=== PATIENT | female | born 1965 | race Caucasian/White ===

== ENCOUNTER 2020-11-22 09:01 | Emergency (ER) | payer MEDICARE, MEDICAID, SELFPAY ==
[2020-11-22 09:02] VITALS: BP 129/80; PULSE 89; RESP 16; TEMP 36.4; O2SAT 99; BMI 32.5
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
[2020-11-22 09:52] VITALS: RESP 16
== END 2020-11-22 09:52 | disposition home or self-care (01) ==
LOC: ED 09:49
PROVIDERS: Emergency Provider Emergency Medicine
DX: H60.91 Unspecified otitis externa, right ear (principal); F17.210 Nicotine dependence, cigarettes, uncomplicated
CPT/HCPCS: 99282

== ENCOUNTER → 2020-11-30 | Outpatient (CLI) | payer MEDICARE, MEDICAID, SELFPAY ==
[2020-11-22 09:02] VITALS: BMI 32.5
== END | disposition home or self-care (01) ==
LOC: LABSPEC 15:14
PROVIDERS: Visit Provider Otolaryngology
DX: H66.40 Suppurative otitis media, unspecified, unspecified ear (principal)
CPT/HCPCS: 87070; 87075; 87186; 87205

== ENCOUNTER → 2020-12-28 | Outpatient (CLI) | payer MEDICARE, MEDICAID, SELFPAY | END | disposition home or self-care (01) | PROVIDERS: Referring Provider Otolaryngology; Visit Provider Otolaryngology | DX: S01.309A Unspecified open wound of unspecified ear, initial encounter (principal) | CPT/HCPCS: 87070; 87075; 87077; 87205 ==

== ENCOUNTER 2021-03-12 06:04 | Day surgery (SDC) | payer MEDICARE, MEDICAID, SELFPAY ==
--- NOTE | 2021-03-12 | ABS_PTH ---
PATIENT: CHAVA POWELL LOC: [facility] [place] U#:[id number] AGE/SX: 55/F ROOM: RE03/12/[address]: Dr. Alfonso Huang MD : 1965 BED: DIS: 03/12/2021 SPEC #: [id number] RECD: 03/12/21 12:59 STATUS: SANGEETA LOPEZ #: [id number] JACKIE: 03/12/21 00:[address]: Alfonso Huang DEPT: SURGICAL PATHOLOGY RECD BY: Angel Ochoa ENTERED: 03/12/21 12:59 SP TYPE: Abscess OTHR DR: Dr. Elia Mancuso MD Tissues: Ear, NOS Procedures: Surgery Specimen Level III HEADER OPERATION: Debridement ear, external abscess PRE-OP DIAGNOSIS: Otorrhea right ear, abscess of right external ear TISSUE SUBMITTED: Skin from right ear abscess MICROSCOPIC DIAGNOSIS Skin from right ear abscess, biopsy: Minimal chronic dermal inflammation. No evidence of malignancy. AM:kelli 03/13/2021 MICROSCOPIC DESCRIPTION Slides are reviewed. GROSS DESCRIPTION Received in fixative is one container labeled with the patient's name and designated skin from right ear abscess. The specimen consists of a single irregular fragment of sinclair tissue measuring 0.3 x 0.2 x 0.1 cm. The specimen is totally submitted in one cassette. / AM:kelli 03/12/21 TC:3 CPT: 39940
[2021-03-12 06:29] VITALS: BP 136/74; PULSE 74; RESP 16; TEMP 36.2; O2SAT 98; BMI 33.0
[2021-03-12] MEDS: Lactated Ringers 1,000 ML 100 ML IV (06:34)
--- NOTE | 2021-03-12 07:31 | PCM.DC.SUM ---
Providers Primary Care Physician: Dr. Elia Manucso MD Reason For Visit: RT DEBRIDEMENT EAR Medications at Discharge Home Medications omeprazole 40 mg PO DAILY 11/22/20 ascorbic acid (vitamin C) [Vitamin C] 500 mg PO DAILY 03/05/21 cholecalciferol (vitamin D3) [Vitamin D3] 25 mcg PO DAILY 03/05/21 ferrous sulfate 325 mg PO DAILY 03/05/21 lecithin 400 mg PO DAILY 03/05/21 loratadine [Claritin] 10 mg PO DAILY 03/05/21 omega 5-lvf-mjw-fish oil [Fish Oil] 1 cap PO DAILY 03/05/21 turmeric 400 mg PO DAILY 03/05/21 vitamin B complex 1 tab PO DAILY 03/05/21 Weight / BMI Weight Weight: 90.2 kg Body Mass Index (BMI) 33.0 ABG / Lab / Microbiology Data Microbiology: Microbiology 03/09/21 08:45 Interface Orders SARS-CoV-2 Antigen (Rapid) - Final D/C Instructions Discharge Diet: No restrictions Discharge Activity: Return to Normal Activity Additional Activity Instructions: Apply antibiotic ointment 3x/day to the ear. Keep right ear dry Meaningful Use Info Meaningful Use Diagnoses (Choose all that apply): None applicable Discharge Plan Admission Attending Provider: Alfonso Huang Primary Care Provider: Elia Mancuso Discharge Orders/Prescriptions Prescriptions: No Action omeprazole 40 mg capsule,delayed release(DR/EC) 40 mg PO DAILY RF: 0 ascorbic acid (vitamin C) [Vitamin C] 500 mg Tablet 500 mg PO DAILY RF: 0 vitamin B complex Tablet 1 tab PO DAILY RF: 0 loratadine [Claritin] 10 mg Tablet 10 mg PO DAILY RF: 0 ferrous sulfate 325 mg (65 mg iron) Capsule, Extended Release 325 mg PO DAILY RF: 0 cholecalciferol (vitamin D3) [Vitamin D3] 25 mcg (1,000 unit) Capsule 25 mcg PO DAILY RF: 0 lecithin 400 mg Capsule 400 mg PO DAILY RF: 0 omega 1-iqn-kti-fish oil [Fish Oil] 60-90-500 mg Capsule 1 cap PO DAILY RF: 0 turmeric 400 mg Capsule 400 mg PO DAILY RF: 0 Disposition Discharge Orders: Discharge Patient (Routine); Ordered 03/12/21 Ordered By: Dr. Alfonso Huang
[2021-03-12] MEDS: Lidocaine 1% /Epi 1:100 (20ml) 20 ML Vial (07:45)
[2021-03-12] MEDS: Mupirocin Ointment 22gm Tube 1 APPLIC (08:00)
--- NOTE | 2021-03-12 08:14 | PCM.OPRPT ---
Report of Operation Date of Procedure: 03/12/21 Pre-Operative Diagnosis: right ear abscess Post-Operative Diagnosis: same and foreign body ear Surgery/Procedure Performed:: debridement right ear with removal of foreign body right ear Surgeon: Alfonso Huang Type of Anesthesia: Local MAC Anesthesiologist: Jordan Barnes Estimated Blood Loss (mL): minimal Description of Procedure: The patient was taken to the operating room on 03/12/2021. She was placed in the supine position on the operating room table. The right ear was prepped and draped sterilely. The operating microscope was used throughout the entire case. 1% lidocaine with epinephrine was injected into the skin surrounding the intended incision. I explored a blind pouch at the superior antihelix. I then made an incision directly over this with a 15 blade. The skin was removed from this area with a 15 blade. At this point I encountered a clear triangular piece of glass. This was removed. I then made an incision along the antihelical rim with a 15 blade. The skin was explored in this area. I did not find any further foreign body. I then irrigated the wound with saline. I reapproximated the skin over the antihelix with 4-0 Vicryl. The area of the blind fistula was left open and antibiotic ointment was applied to that area. The patient was then removed from the operating room and brought to the recovery room in stable condition. Blood loss minimal, replacement none. Sponge needle and instrument count correct at the end the procedure.
[2021-03-12 08:25] VITALS: BP 114/73; BP 136/74; PULSE 69; RESP 18; TEMP 36.1; O2SAT 98
[2021-03-12 08:30] VITALS: BP 114/67; BP 136/74; PULSE 68; RESP 16; O2SAT 97
[2021-03-12 08:35] VITALS: BP 120/70; BP 136/74; PULSE 64; RESP 16; O2SAT 95
[2021-03-12 08:40] VITALS: BP 117/67; BP 136/74; PULSE 68; RESP 16; TEMP 36.1; O2SAT 97
[2021-03-12 09:10] VITALS: BP 136/74
== END 2021-03-12 09:11 | disposition home or self-care (01) ==
LOC: SDC 06:05 → AC 06:05
PROVIDERS: Referring Provider Otolaryngology; Visit Provider Otolaryngology
PROC: (CPT 69399; principal; 2021-03-12 07:15)
DX: H60.01 Abscess of right external ear (principal); K21.9 Gastro-esophageal reflux disease without esophagitis; M19.90 Unspecified osteoarthritis, unspecified site; G47.30 Sleep apnea, unspecified; Z78.0 Asymptomatic menopausal state
CPT/HCPCS: 00120; 69399; 87426; 88304; C9803; J7120; J2405

== ENCOUNTER → 2021-04-12 | Outpatient (CLI) | payer MEDICARE, MEDICAID, SELFPAY | END | disposition home or self-care (01) | LOC: LABSPEC 10:16 | PROVIDERS: Referring Provider Otolaryngology; Visit Provider Otolaryngology | DX: H66.40 Suppurative otitis media, unspecified, unspecified ear (principal) | CPT/HCPCS: 87070; 87075; 87077; 87205 ==

== ENCOUNTER → 2021-12-12 | Outpatient (CLI) | payer MEDICARE, MEDICAID, SELFPAY ==
[2021-12-19 01:07] LABS: Clam <0.10 kU/L (Class 0); Codfish <0.10 kU/L (Class 0); Corn <0.10 kU/L (Class 0); Egg, White <0.10 kU/L (Class 0); Milk (Cow) <0.10 kU/L (Class 0); Peanut <0.10 kU/L (Class 0); SCALLOP <0.10 kU/L (Class 0); Shrimp <0.10 kU/L (Class 0); Soybean <0.10 kU/L (Class 0); Walnut, (Food) <0.10 kU/L (Class 0); Wheat <0.10 kU/L (Class 0)
[2021-12-20 16:43] LABS: SESAME SEED <0.10 kU/L (Class 0)
== END | disposition home or self-care (01) ==
PROVIDERS: Referring Provider Otolaryngology; Visit Provider Otolaryngology
DX: S01.301A Unspecified open wound of right ear, initial encounter (principal); T78.40XA Allergy, unspecified, initial encounter
CPT/HCPCS: 36415; 86003; 87070; 87077; 87186; 87205

== ENCOUNTER → 2022-05-02 | Outpatient (CLI) | payer MEDICARE, MEDICAID, SELFPAY | END | disposition home or self-care (01) | LOC: LABSPEC 15:15 | PROVIDERS: Visit Provider Otolaryngology | DX: S09.91XA Unspecified injury of ear, initial encounter (principal) | CPT/HCPCS: 87070; 87075; 87077; 87186; 87205 ==

== ENCOUNTER → 2022-08-15 | Outpatient (CLI) | payer MEDICARE, MEDICAID, SELFPAY ==
[2022-08-23 13:30] LABS: HPV APTIMA, High Risk Negative (Negative)
== END | disposition home or self-care (01) ==
LOC: LABSPEC 16:03
PROVIDERS: Visit Provider Obstetrics & Gynecology
DX: Z12.4 Encounter for screening for malignant neoplasm of cervix (principal)
CPT/HCPCS: 87624; 88175; G0145

== ENCOUNTER → 2022-08-29 | Outpatient (CLI) | payer MEDICARE, MEDICAID, SELFPAY ==
--- NOTE | 2022-08-29 12:07 | BI_ITS ---
MAMMOGRAPHY - BILATERAL SCREENING REASON FOR EXAM: Female, 56 years old. Routine annual screening examination. PERTINENT HISTORY: Non-contributory. TECHNIQUE: Digital bilateral breast rebecca (3D mammographic acquisition) in the CC and MLO projections. 2-D mediolateral oblique (MLO) and craniocaudad (CC) views of both breasts were obtained. CAD: Full Field Digital Mammography with Computer Added Detection was performed. COMPARISON: Comparison is made with prior examination of March 01, 2010 and outside examination dated April 02, 2019. FINDINGS: Breast Composition: The breasts are almost entirely fatty. There are no dominant masses or suspicious calcifications. No other significant abnormalities are identified. There has been no significant change since the prior study. BI/SCRN MAMM (CAD)W/REBECCA BILAT IMPRESSION: Stable bilateral screening mammogram. Yearly follow-up mammogram recommended. (A) ASSESSMENT CATEGORY: BIRADS Category 1: Negative. A letter regarding these results will be sent to the patient by the facility within 30 days. Approximately 10% of breast cancers are not detected by mammography. A normal mammogram should not delay biopsy of a clinically suspicious abnormality. [id number] Electronically Signed: Kelvin Arce MD at 12:50 EST ,
== END | disposition home or self-care (01) ==
LOC: OPBI 12:05
PROVIDERS: Visit Provider Obstetrics & Gynecology
DX: Z12.31 Encounter for screening mammogram for malignant neoplasm of breast (principal)
CPT/HCPCS: 77063; 77067

== ENCOUNTER → 2022-11-15 | Outpatient (CLI) | payer MEDICARE, MEDICAID, SELFPAY ==
[2022-11-15 14:30] LABS: Absolute Lymphocyte Count 3.19 X10^3/uL (0.83-4.51); Absolute Neutrophil Count 4.1 X10^3/uL (2.0-7.7); Basophil# 0.03 X10^3/uL; Basophil% 0.4 % (0-1); Eosinophils% 1.3 % (0-5); Hematocrit 41.1 % (37-47); Hemoglobin 13.3 g/dL (12.0-15.0); Lymphocyte # 3.19 X10^3/ul (0.83-4.51); Lymphocyte % 39.9 % (19-41); Mean Corp Hgb Conc 32.4 g/dL (32-36); Mean Corpuscular Hgb 32.2 pg (27.0-32.0); Mean Corpuscular Volume 99.5 fL (81-99); Monocyte% 6.3 % (0-10); NRBC Flagged by Analyzer 0 % (0-5); Neutrophil # 4.14 X10^3/uL (2.7-7.7); Neutrophil % 51.7 % (47-70); Platelet Count 219 K/mm3 (150-450); RBC Distribution Width CV 13.3 % (11.6-14.6); RBC Distribution Width SD 48.7 fl (35.1-43.9); Red Blood Count 4.13 M/mm3 (4.2-5.4)
[2022-11-15 14:33] LABS: Erythrocyte Sedimentation Rate 18 mm/hr (0-30)
[2022-11-15 15:01] LABS: ALB/GLOB Ratio 1.1 RATIO (0.9-2.4); AST(SGOT) 25 U/L (15-37); Alanine Aminotransfer ALT/SGPT 46 U/L (13-56); Albumin, Serum 3.8 g/dL (3.2-5.0); Alkaline Phosphatase 70 U/L (45-117); Anion Gap 9 (5-15); BUN 11 mg/dL (7-18); BUN/Creat Ratio 14.9 RATIO (10-20); CRP 5.18 mg/L (0.0-3.0); Calcium,Total 8.9 mg/dL (8.5-10.1); Chloride 108 mmol/L (98-107); Creatinine, Serum 0.74 mg/dL (0.55-1.02); EST Glomerular Filtration Rate 86 mL/min (>60); Est Glom Filt Rate - Afr Amer 105 mL/min (>60); Ferritin 89 ng/mL (8-252); Globulin 3.5 g/dL (2.2-4.2); Glucose 119 mg/dL (74-106); LDH 186 U/L (84-246); Potassium 3.6 mmol/L (3.5-5.1); Protein, Total 7.3 g/dL (6.4-8.2); Sodium Level 142 mmol/L (136-145)
[2022-11-19 14:09] LABS: Anti-Centromere B Ab <0.2 AI (0.0-0.9); Anti-Chromatin <0.2 AI (0.0-0.9); Anti-Jo <0.2 AI (0.0-0.9); Anti-Scleroderma-70 AB <0.2 AI (0.0-0.9); Anti-dsDNA Ab 1 IU/mL (0-9); RNP Ab 0.2 AI (0.0-0.9); SJOGREN'S Anti-SS-A test < 0.2 AI (0.0-0.9); SJOGREN'S Anti-SS-B test 0.4 AI (0.0-0.9); Smith Ab <0.2 AI (0.0-0.9)
[2022-11-19 15:08] LABS: Endomysial Antibody IgA Negative (Negative); Immunoglobulin A 168 mg/dL (87-352); t-Transglutaminase IgA <2 U/mL (0-3)
[2022-11-21 14:09] LABS: Albumin 4.1 g/dL (2.9-4.4); Alpha-1-Globulins 0.2 g/dL (0.0-0.4); Alpha-2-Globulins 0.6 g/dL (0.4-1.0); Angiotensin Convert Enzyme 30 U/L (14-82); Cytoplasmic Ab (C-ANCA) <1:20 titer (Neg:<1:20); Gamma Globulin 1.1 g/dL (0.4-1.8); Immunoglobulin A 173 mg/dL (87-352); Immunoglobulin E 24 IU/mL (6-495); Immunoglobulin G 806 mg/dL (586-1602); Immunoglobulin M 411 mg/dL (26-217); PROEL- TOTAL PROTEIN 6.9 g/dL (6.0-8.5); Perinuclear Ab (P-ANCA) <1:20 titer (Neg:<1:20)
== END | disposition home or self-care (01) ==
PROVIDERS: Referring Provider Internal Medicine Gastroenterology; Visit Provider Internal Medicine Gastroenterology
DX: R19.7 Diarrhea, unspecified (principal); H60.90 Unspecified otitis externa, unspecified ear; D64.9 Anemia, unspecified
CPT/HCPCS: 36415; 80053; 82164; 82728; 82784; 82785; 83516; 83615; 84165; 85025; 85652; 86140; 86225; 86235; 86255; 86256; 86334

== ENCOUNTER → 2023-03-11 | Outpatient (CLI) | payer MEDICARE, MEDICAID, SELFPAY | END | disposition home or self-care (01) | LOC: LABSPEC 15:15 | PROVIDERS: PCP Physician Assistant; Referring Provider Internal Medicine Gastroenterology; Visit Provider Internal Medicine Gastroenterology | DX: R19.7 Diarrhea, unspecified (principal); K58.9 Irritable bowel syndrome, unspecified | CPT/HCPCS: 82653; 82705; 83630; 83993; 87177; 87209; 87329; 87493; 87506 ==

== ENCOUNTER 2023-04-01 11:02 | Day surgery (SDC) | payer MEDICARE, MEDICAID, SELFPAY ==
[2023-04-01] VITALS (7 sets, daily range): BP systolic 124–134; BP diastolic 66–82; PULSE 69–83; RESP 16–18; TEMP 36.2–36.6; O2SAT 96–99; BMI 32.4
--- NOTE | 2023-04-01 | COLBX_PTH ---
PATIENT: CHAVA POWELL LOC: [facility] U#:[id number] AGE/SX: 57/F ROOM: RE04/01/[address]: Dr. Augie Kelly DO : 1965 BED: DIS: 04/01/2023 SPEC #: [id number] RECD: 04/01/23 15:14 STATUS: SANGEETA JESSICA #: [id number] JACKIE: 04/01/23 00:[address]: Augie Kelly DEPT: SURGICAL PATHOLOGY RECD BY: Arelis Blue ENTERED: 04/02/23 10:02 SP TYPE: COLON BX OTHR DR: Iam Darling PA-C Tissues: A - Duodenum, NOS B - Gastric mucous membrane C - Esophagus, NOS D - Ileum, NOS E - COLON BIOPSY Procedures: Special Stain Group II Surgery Specimen Level IV Alcian Blue/PAS (control) HEADER OPERATION: Colonoscopy, EGD ([facility] [place]), biopsy PRE-OP DIAGNOSIS: Screening, gastric reflux, diarrhea TISSUE SUBMITTED: A - Duodenum biopsy, B - Gastric body biopsy, C - Distal esophagus biopsy, D - Terminal ileum biopsy, E - Random colonic biopsy MICROSCOPIC DIAGNOSIS A. Duodenum, biopsy: No pathologic change. B. Gastric body, biopsy: Mild chronic gastritis. See comment. C. Distal esophagus, biopsy: Gastroesophageal junctional mucosa with mild chronic inflammation. No evidence of goblet cell metaplasia. See comment. D. Terminal ileum, biopsy: No pathologic change. E. Colon, random biopsy: No pathologic change. AM:kelli 04/03/2023 COMMENT B. The results of immunohistochemistry for Helicobacter pylori will be reported separately ([id number]). C. Alcian blue/PAS stain with matched control supports the above diagnosis. MICROSCOPIC DESCRIPTION Slides are reviewed. GROSS DESCRIPTION A - Received in fixative is one container labeled with the patient's name and designated duodenum biopsy. The specimen consists of two irregular fragments of light sinclair soft tissue that in aggregate measure 1.0 x 0.5 x 0.1 cm. The specimen is totally submitted in one cassette. B - Received in fixative is one container labeled with the patient's name and designated gastric body biopsy. The specimen consists of two irregular fragments of light sinclair soft tissue that in aggregate measure 0.7 x 0.6 x 0.1 cm. The specimen is totally submitted in one cassette. C - Received in fixative is one container labeled with the patient's name and designated distal esophagus. The specimen consists of two irregular fragments of light sinclair soft tissue that in aggregate measure 0.6 x 0.5 x 0.1 cm. The specimen is totally submitted in one cassette. D - Received in fixative is one container labeled with the patient's name and designated terminal ileum biopsy. The specimen consists of one irregular fragment of light sinclair soft tissue that measures 0.5 x 0.3 x 0.1 cm. The specimen is totally submitted in one cassette. E - Received in fixative is one container labeled with the patient's name and designated random colon biopsy. The specimen consists of multiple irregular fragments of light sinclair soft tissue that in aggregate measure 2.0 x 0.5 x 0.1 cm. The specimen is totally submitted in one cassette. / AM:kelli 04/02/2023 TC:3 CPT: 06386 x5, 39853
[2023-04-01] MEDS: Lactated Ringers 1,000 ML 15 ML IV (11:31)
--- NOTE | 2023-04-01 12:15 | IMM_PTH ---
PATIENT: CHAVA POWELL LOC: [facility] U#:[id number] AGE/SX: 57/F ROOM: RE04/01/[address]: Dr. Augie Kelly DO : 1965 BED: DIS: 04/01/2023 SPEC #: [id number] RECD: 04/02/23 13:50 STATUS: SANGEETA REKam #: [id number] JACKIE: 04/01/23 12:[address]: Augie Kelly DEPT: IMMUNOHISTOCHEMISTRY RECD BY: Geri Marte ENTERED: 04/02/23 13:50 SP TYPE: IMMUNO OTHR DR: Iam Darling PA-C Tissues: B - Stomach, NOS Procedures: H Pylori (initial) PHYSICIAN & INSTITUTION [place] [id number] SPECIMEN INFORMATION: Tissue Source: B - Gastric body Clinical Info: Screening, gastric reflux, diarrhea Specimen Number: [id number] CPT code: 94907 METHODOLOGY: Deparaffinized sections of prefer/formalin-fixed tissue or PAP/DQ stained slides are incubated with monoclonal/polyclonal antibodies/oligonucleotide probes. Localization is made via biotin free immunoperoxidase method. Appropriate controls are performed and reacted as expected. Results on target cell population are indicated in the following table: RESULTS: ANTIBODY / CLONE RESULT Block B H Pylori (polyclonal) negative These tests were developed and their performance characteristics determined by [facility]. They may not have been cleared or approved by the U.S. Food and Drug Administration. The FDA has determined that such clearance or approval is not necessary. The above immunohistochemical/dualISH markers are ordered and reviewed by the Pathologist. INTERPRETATION: B. Gastric body, biopsy: Negative for Helicobacter pylori organisms. AM:kelli 04/03/2023
--- NOTE | 2023-04-01 12:22 | HP.PCM_ITS ---
History and Physical Date of Admission: 04/01/23 57 F who presents to the office today for [facility] established for management of malignant lymphoma, pancytopenia, splenomegaly, Waldenstrom?s macroglobulinemia, iron deficiency anemia. ? Barium swallow 08.21.21 mild-moderate oropharyngeal phase dysphagia. Enrolled in . Somewhat improved from 07.10.21 study. ? PET/CT 05.29.22 increased splenic uptake viable for splenic neoplastic transformation; increased uptake of left lower lateral hemithorax not viable for neoplasm. ? CT abd/pel 09.16.22 normal liver; moderate splenomegaly; renal cysts; prior small intestine surgery; diverticulosis; atherosclerotic disease. *[facility] established 11.15.22 new onset weakness in the last three weeks, he has extreme difficulty standing. Reports upper abdominal discomfort with PO intake. BM typically constipation with straining with beginning stool hard and ending stool watery. Notes hemorrhoids with bleeding. PO intake two meals per day r/t poor tasting foods. Reports oncologist would like to start on low-aggressive chemotherapy. Increased abdominal distension when BLE started. Reports bowel resection r/t bowel obstruction r/t lymphoma performed at [facility]. Reports new onset swallowing difficulty; history of PEG placement in 2021 to address dysphagia.? ROS Const Constitutional: No anorexia, fatigue, fever(s), weight change or sleep problems Eyes Eyes: No change in vision ENT ENT: No abnormal hearing, difficulty swallowing, mouth lesions, tongue swelling or throat swelling Resp Respiratory: No cough or shortness of breath Cardio Cardiology: No chest pain at rest, chest pain with exertion, shortness of breath or dyspnea on exertion Gastro GI: No difficulty swallowing Genitourinary-Female: No difficulty urinating or burning urination Musc Musculoskeletal: No joint pain, joint swelling, muscle weakness or decreased muscle mass Skin Skin: No hair loss in leg, yellowing of the eye, itchy eyes, rash, skin ulcer or skin swelling Neuro Neurology: No abnormal hearing, abnormal movements, confusion, unsteady gait/balance or memory loss Psych Psychiatric: No anxiety, No confusion and No memory loss Endo Endocrine: No fatigue or weight change Aller/Imm Allergy/Immunologic: No itchy eyes, throat swelling or tongue swelling Gus/Lymp Hematologic/Lymphatic: No easy bleeding, easy bruising or enlarged lymph nodes Exam Const General: cooperative and comfortable Nutritional Appearance: average body habitus and well nourished [facility] Head: normal to inspection Ears: hearing grossly normal bilaterally Nose: external nose normal Face and sinus: normal facial exam Mouth: oral mucosae normal Throat: posterior oropharynx normal Eyes General: appearance normal, both eyes and all related structures Neck Neck: normal visual inspection Chest Chest palpation & inspection: normal inspection of the chest and normal palpation of entire chest wall Resp Effort & Inspection: normal respiratory effort Auscultation: Bilateral: Clear to Auscultation Cardio Palpation: normal PMI Rate: regular rate Rhythm: regular rhythm GI Inspection: normal to inspection Auscultation: normal bowel sounds Percussion: normal to percussion Palpation: no hepatosplenomegaly Skin General: no rashes or lesions noted Neuro General: patient alert Extrem General: normal to inspection Psych Affect: normal affect Quality Reporting Tobacco Screening ([facility] 138) Smoking Status: Current every day smoker Assessment and Plan Assessment and Plan (1) Encounter for screening for malignant neoplasm of colon: Status: Acute Plan: She will undergo screening colonoscopy. She was explained alternatives, risk, benefits include not withstanding bleeding, infection, sepsis, perforation, need for emergent surgery . She will have an ASA of 2. (2) Gastric reflux: Status: Chronic Plan: We will also evaluate upper GI tract because a history of gastroesophageal reflux disease. He is is not on PPI therapy. We will put her on Protonix 40 mg daily. (3) Diarrhea: Status: Acute Plan: Due to her history of intermittent diarrhea we will check her for celiac disease, ESR, CRP, protein electrophoresis, stool studies and will also evaluate upper lower GI tract when she undergoes her endoscopy and colonoscopy. Orders: Orders CRP Today R19.7 - Diarrhea, unspecified Ferritin Today D64.9 - Anemia, unspecified, R19.7 - Diarrhea, unspecified LDH Today R19.7 - Diarrhea, unspecified CBC W/Diff, Automated Today H60.90 - Unspecified otitis externa, unspecified ear, R19.7 - Diarrhea, unspecified Erythrocyte Sed Rate Today R19.7 - Diarrhea, unspecified Angiotensin Convert Enzyme Today R19.7 - Diarrhea, unspecified ANCA Today R19.7 - Diarrhea, unspecified Celiac Disease Profile Today R19.7 - Diarrhea, unspecified Immunoglobulin E Today R19.7 - Diarrhea, unspecified Comprehensive Metabolic Profil Today R19.7 - Diarrhea, unspecified DARIN Comprehensive Panel Today R19.7 - Diarrhea, unspecified Calprotectin, Stool Today R19.7 - Diarrhea, unspecified Fecal Fat, Qualitative Today R19.7 - Diarrhea, unspecified OVA+PARA w/Giardia EIA [id number] Today R19.7 - Diarrhea, unspecified CDIFF (PCR) Today R19.7 - Diarrhea, unspecified ENTERIC PATHOGEN PANEL STOOL Today K58.9 - Irritable bowel syndrome without diarrhea, R19.7 - Diarrhea, unspecified Stool Lactoferrin/WBC Today K58.9 - Irritable bowel syndrome without diarrhea, R19.7 - Diarrhea, unspecified ROCKY + Protein Elect, Serum Today R19.7 - Diarrhea, unspecified Pancreatic Elastase, Fecal Today R19.7 - Diarrhea, unspecified Miscellaneous Lab Procedure Today R19.7 - Diarrhea, unspecified I have examined the patient and the H&P has been reviewed. There are no clinical changes since date of exam.
--- NOTE | 2023-04-01 13:04 | OP.EGD_ITS ---
Patient Name: Jennifer Rogers Procedure Date: 04/01/2023 12:29 PM Date of : 1965 Age: 57 Procedure: Upper GI endoscopy Indications: Functional Dyspepsia, Heartburn Providers: Augie Kelly DO Referring MD: Iam Darling Do Medicines: Monitored Anesthesia Care Patient Profile: This is a 57 year old female. Refer to note in patient chart for documentation of history and physical. Patient has symptoms of chronic abdominal cramping, chronic abdominal distention, chronic dysphagia and chronic dyspepsia. Complications: No immediate complications. Procedure: Pre-Anesthesia Assessment: - Prior to the procedure, a History and Physical was performed, and patient medications and allergies were reviewed. The risks and benefits of the procedure and the sedation options and risks were discussed with the patient. All questions were answered and informed consent was obtained. Patient identification and proposed procedure were verified by the physician in the pre-procedure area. Mental Status Examination: alert and oriented. Respiratory Examination: clear to auscultation. CV Examination: normal. Prophylactic Antibiotics: The patient does not require prophylactic antibiotics. Prior Anticoagulants: The patient has taken no anticoagulant or antiplatelet agents. ASA Grade Assessment: II - A patient with mild systemic disease. After reviewing the risks and benefits, the patient was deemed in satisfactory condition to undergo the procedure. The anesthesia plan was to use monitored anesthesia care (MAC). Immediately prior to administration of medications, the patient was re-assessed for adequacy to receive sedatives. The heart rate, respiratory rate, oxygen saturations, blood pressure, adequacy of pulmonary ventilation, and response to care were monitored throughout the procedure. The physical status of the patient was re-assessed after the procedure. After obtaining informed consent, the endoscope was passed under direct vision. Throughout the procedure, the patient's blood pressure, pulse, and oxygen saturations were monitored continuously. The colonoscope was introduced through the mouth, and advanced to the second part of duodenum. The upper GI endoscopy was accomplished without difficulty. The patient tolerated the procedure well. Scope In: 12:30:55 PM Scope Out: 12:40:44 PM Total Procedure Duration Time 0 hours 9 minutes 49 seconds Findings: The upper third of the esophagus and middle third of the esophagus were mildly tortuous. A moderate Schatzki ring was found in the lower third of the esophagus. A guidewire was placed and the scope was withdrawn. Dilation was performed with a Savary dilator with no resistance at 45 Fr. The dilation site was examined and showed moderate mucosal disruption. Estimated blood loss was minimal. There were esophageal mucosal changes suspicious for Wild's esophagus present in the lower third of the esophagus. The maximum longitudinal extent of these mucosal changes was 3 cm in length. Mucosa was biopsied with a cold forceps for histology at intervals of 1 cm in the lower third of the esophagus. One specimen bottle was sent to pathology. A small hiatal hernia was present. Patchy moderately erythematous mucosa without bleeding was found in the gastric body. Biopsies were taken with a cold forceps for histology. Verification of patient identification for the specimen was done. Biopsies were taken with a cold forceps for Helicobacter pylori testing. Verification of patient identification for the specimen was done. Estimated blood loss was minimal. There was evidence of a patent previous surgical anastomosis in the first portion of the duodenum. This was characterized by healthy appearing mucosa. Biopsies were taken with a cold forceps for histology. Verification of patient identification for the specimen was done. Estimated blood loss was minimal. Impression: - Tortuous esophagus. - Moderate Schatzki ring. Dilated. 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 Biopsied. - Small hiatal hernia. - Erythematous mucosa in the gastric body. Biopsied. - Patent previous surgical anastomosis, characterized by healthy appearing mucosa was found in the duodenum. Biopsied. Recommendation: - Discharge patient to home. - Resume previous diet. - Continue present medications. - Await pathology results. Procedure Code(s): --- Professional --- 71027, Esophagogastroduodenoscopy, flexible, transoral; with insertion of guide wire followed by passage of dilator(s) through esophagus over guide wire 19319, 59,51, Esophagogastroduodenoscopy, flexible, transoral; with biopsy, single or multiple CPT copyright 2021 [employer]. All rights reserved. The codes documented in this report are preliminary and upon business process manager review may be revised to meet current compliance requirements. Augie Kelly DO 04/01/2023 1:04:01 PM This report has been signed electronically. Number of Addenda: 0 Note Initiated On: 04/01/2023 12:29 PM
--- NOTE | 2023-04-01 13:04 | OP.CCLET_ITS ---
04/01/2023 Iam Darling Do Re : Upper GI endoscopy procedure for Jennifer Rogers Dear Phong This procedure was performed on Saturday, April 01, 2023. My impressions and recommendations are as follows: Impressions : - Tortuous esophagus. - Moderate Schatzki ring. Dilated. 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 Biopsied. - Small hiatal hernia. - Erythematous mucosa in the gastric body. Biopsied. - Patent previous surgical anastomosis, characterized by healthy appearing mucosa was found in the duodenum. Biopsied. Recommendations : - Discharge patient to home. - Resume previous diet. - Continue present medications. - Await pathology results. My findings are described in the full procedure note, which is enclosed. If I can be of further assistance, please feel free to contact me at . Sincerely, Augie Kelly, 04/01/2023 1:04:01 PM This report has been signed electronically.
--- NOTE | 2023-04-01 13:07 | OP.CCLET_ITS ---
04/01/2023 Iam Darling Do Re : Colonoscopy procedure for Jennifer Rogers Dear Phong This procedure was performed on Saturday, April 01, 2023. My impressions and recommendations are as follows: Impressions : - Diverticulosis in the sigmoid colon. - Congested mucosa in the transverse colon and in the ascending colon. Biopsied. - Congested mucosa in the terminal ileum. Biopsied. Recommendations : - Discharge patient to home. - Resume previous diet. - Continue present medications. - Await pathology results. - Repeat colonoscopy in 10 years for screening purposes. My findings are described in the full procedure note, which is enclosed. If I can be of further assistance, please feel free to contact me at . Sincerely, Augie Kelly, 04/01/2023 1:06:30 PM This report has been signed electronically.
--- NOTE | 2023-04-01 13:07 | OP.COLON_ITS ---
Patient Name: Jennifer Rogers Procedure Date: 04/01/2023 12:41 PM Date of : 1965 Age: 57 Procedure: Colonoscopy Indications: Screening for colorectal malignant neoplasm Providers: Augie Kelly DO Referring MD: Iam Darling Do Medicines: Monitored Anesthesia Care Patient Profile: This is a 57 year old female. Refer to note in patient chart for documentation of history and physical. Patient has symptoms of chronic abdominal cramping, chronic abdominal distention, chronic dysphagia and chronic dyspepsia. Last Colonoscopy: date unknown. Unable to locate last colonoscopy report. Complications: No immediate complications. Procedure: Pre-Anesthesia Assessment: - Prior to the procedure, a History and Physical was performed, and patient medications and allergies were reviewed. The risks and benefits of the procedure and the sedation options and risks were discussed with the patient. All questions were answered and informed consent was obtained. Patient identification and proposed procedure were verified by the physician in the pre-procedure area. Mental Status Examination: alert and oriented. Respiratory Examination: clear to auscultation. CV Examination: normal. Prophylactic Antibiotics: The patient does not require prophylactic antibiotics. Prior Anticoagulants: The patient has taken no anticoagulant or antiplatelet agents. ASA Grade Assessment: II - A patient with mild systemic disease. After reviewing the risks and benefits, the patient was deemed in satisfactory condition to undergo the procedure. The anesthesia plan was to use monitored anesthesia care (MAC). Immediately prior to administration of medications, the patient was re-assessed for adequacy to receive sedatives. The heart rate, respiratory rate, oxygen saturations, blood pressure, adequacy of pulmonary ventilation, and response to care were monitored throughout the procedure. The physical status of the patient was re-assessed after the procedure. After I obtained informed consent, the scope was passed under direct vision. Throughout the procedure, the patient's blood pressure, pulse, and oxygen saturations were monitored continuously. The colonoscope was introduced through the anus and advanced to the terminal ileum. The colonoscopy was performed without difficulty. The patient tolerated the procedure well. The quality of the bowel preparation was adequate. The terminal ileum, ileocecal valve, appendiceal orifice, and rectum were photographed. Scope In: 12:43:48 PM Scope Withdrawal Time 0 hours 11 minutes 2 seconds Scope Out: 12:57:41 PM Total Procedure Duration Time 0 hours 13 minutes 53 seconds Findings: The perianal and digital rectal examinations were normal. A few small-mouthed diverticula were found in the sigmoid colon. An area of mildly congested mucosa was found in the transverse colon and in the ascending colon. Biopsies for histology were taken with a cold forceps from the ascending colon, right colon, left colon and transverse colon for evaluation of microscopic colitis. Verification of patient identification for the specimen was done. Estimated blood loss was minimal. A localized area of the terminal ileum was congested. Biopsies were taken with a cold forceps for histology. Verification of patient identification for the specimen was done. Estimated blood loss was minimal. Impression: - Diverticulosis in the sigmoid colon. - Congested mucosa in the transverse colon and in the ascending colon. Biopsied. - Congested mucosa in the terminal ileum. Biopsied. Recommendation: - Discharge patient to home. - Resume previous diet. - Continue present medications. - Await pathology results. - Repeat colonoscopy in 10 years for screening purposes. Procedure Code(s): --- Professional --- 69451, Colonoscopy, flexible; with biopsy, single or multiple CPT copyright 2021 [employer]. All rights reserved. The codes documented in this report are preliminary and upon drainage design coordinator review may be revised to meet current compliance requirements. Augie Kelly DO 04/01/2023 1:06:30 PM This report has been signed electronically. Number of Addenda: 0 Note Initiated On: 04/01/2023 12:41 PM
== END 2023-04-01 13:45 | disposition home or self-care (01) ==
LOC: EN 11:04 → AC 11:09
PROVIDERS: PCP Physician Assistant; Referring Provider Physician Assistant; Visit Provider Internal Medicine Gastroenterology
PROC: 0DJD8ZZ Inspection of Lower Intestinal Tract, Via Natural or Artificial Opening Endoscopic (ICD-10-PCS; CPT 45378; principal; 2023-04-01 12:10)
DX: Z12.11 Encounter for screening for malignant neoplasm of colon (principal); D61.818 Other pancytopenia; C88.0 Waldenstrom macroglobulinemia; K44.9 Diaphragmatic hernia without obstruction or gangrene; K63.89 Other specified diseases of intestine; K57.30 Diverticulosis of large intestine without perforation or abscess without bleeding; F17.200 Nicotine dependence, unspecified, uncomplicated; K21.9 Gastro-esophageal reflux disease without esophagitis; R19.7 Diarrhea, unspecified; Z87.19 Personal history of other diseases of the digestive system; R16.1 Splenomegaly, not elsewhere classified; K22.89 Other specified disease of esophagus; K22.2 Esophageal obstruction; K29.50 Unspecified chronic gastritis without bleeding
CPT/HCPCS: 45380; 43248; 43239; 87493; 87506; 88305; 88313; 88342; J7120; J2405

== ENCOUNTER 2023-10-10 09:11 | Outpatient (CLI) | payer MEDICARE, MEDICAID, SELFPAY ==
--- NOTE | 2023-10-10 09:17 | BD_ITS ---
STUDY: DUAL ENERGY X-RAY ABSORPTIOMETRY / DXA REASON FOR EXAM: Female, 57 years old. 733.90OsteopeniaBONE DENSITY REASON FOR EXAM TECHNIQUE: Bone Mineral Density (BMD) measurements of lumbar spine and bilateral hips were obtained. COMPARISON: None. FINDINGS: Lumbar Spine (L1-L4): g/cm2 (1.272) / T-score (2.3) / Z-score (3.5) Findings are suggestive of normal bone density with a low fracture risk. Left Femur Total: g/cm2 (0.813) / T-score (-1.1) / Z-score (-0.2) Left Femoral Neck: g/cm2 (0.666) / T-score (-1.6) / Z-score (-0.5) Right Femur Total: g/cm2 (0.844) / T-score (-0.8) / Z-score (0.0) Right Femoral Neck: g/cm2 (0.628) / T-score (-2.0) / Z-score (-0.8) BD/Dexa Bone Density Study IMPRESSION: The patient is considered osteopenic as outlined below according to World Carlos Organization (WHO) criteria with a moderate fracture risk. Reference Information: The T-score is the number of standard deviations above or below the standard which is normal for young adults at their peak bone mineral density. The World Health Organization (WHO) interprets the T-scores as follows: Above -1 Normal bone density Between -1 and -2.5 Osteopenia Equal to / or below -2.5 Osteoporosis As a practical clinical guideline, osteopenia may be graded as follows: Mild -1 through -1.5 Moderate -1.6 through -2.0 Severe -2.1 through -2.4 The Z-score is the number of standard deviations above or below age-matched controls. A Z-score of less than -1.5 would be considered abnormal. References: 1. NIH Osteoporosis and Related Bone Diseases www osteo.org 2. International Society for Clinical Densitometry www iscd.org 3. National Osteoporosis Foundation www nof.org Electronically Signed: Kelvin Arce MD at 13:52 EDT ,
== END 2023-10-10 23:59 | disposition home or self-care (01) ==
LOC: OPBD 09:15
PROVIDERS: PCP Physician Assistant
DX: M85.89 Other specified disorders of bone density and structure, multiple sites (principal)
CPT/HCPCS: 77080

== ENCOUNTER → 2024-08-16 | Outpatient (CLI) | payer MEDICARE, MEDICAID, SELFPAY ==
--- NOTE | 2024-08-16 12:38 | ART_ITS ---
Reason For Study Reason For Study: PVD Procedure A bilateral lower extremity continuous wave Doppler with analog waveform analysis,segmental pressures,and ankle brachial indexes with exercise. Left Segmental Pressures Left brachial= 122mmHg. Left high thigh = 123mmHg. Left low thigh = 112mmHg. Left calf = 101mmHg. Left posterior tibial artery = 105mmHg. Left dorsalis pedis artery = 100mmHg. Left digit = 83 mmHg. The left dorsalis pedis waveforms are biphasic. The left posterior tibial artery waveforms are biphasic. Right Segmental Pressures Right brachial= 124mmHg. Right low thigh = 126mmHg. Right calf = 94mmHg. Right posterior tibial artery = 104mmHg. Right dorsalis pedis artery = 94mmHg. Right digit = 83 mmHg. The right dorsalis pedis waveforms are biphasic. The right posterior tibial artery waveforms are biphasic. Indices The right ankle brachial index by the dorsalis pedis is 0.76. The right ankle brachial index by the posterior tibial artery is 0.84. The right digital-brachial index is 0.67. The right post exercise ankle brachial index is 0.41. The left ankle brachial index by the dorsalis pedis is 0.81. The left ankle brachial index by the posterior tibial artery is 0.85. The left digital-brachial index is 0.67. The left post exercise ankle brachial index is 0.39. VL/Lower Ext Art Exam w/ Exercise Interpretation Summary Right MEI 0.84, moderate arterial insufficiency. Doppler/PVR waveforms and segm ental pressures reveal distal SFA/popliteal disease Right lower extremity with abnormal response to exercise and post exercise MEI in the severe category. Left MEI 0.85, moderate arterial insufficiency. Doppler/PVR waveforms and segme ntal pressures reveal aorto-iliac disease. Left lower extremity with abnormal response to exercise and post exercise MEI i n the severe category. Ordering Physician: Donna Canela Referring Physician: Iam Darling Performed By: Willinger, Amada, RVT
== END | disposition home or self-care (01) ==
PROVIDERS: PCP Physician Assistant; Referring Provider Physician Assistant; Visit Provider Physician Assistant
DX: I73.9 Peripheral vascular disease, unspecified (principal)
CPT/HCPCS: 93924

== ENCOUNTER → 2024-08-23 | Outpatient (CLI) | payer MEDICARE, MEDICAID, SELFPAY ==
--- NOTE | 2024-08-23 07:25 | MRI_ITS ---
PROCEDURE: SPINE LUMBAR (ROUTINE) REASON FOR EXAM: LUMBAR PAIN TECHNIQUE: Multisequence multiplanar MRI lumbar spine was performed without IV contrast. COMPARISON: None. FINDINGS: Vertebrae: Vertebral body heights are preserved. Scattered degenerative type marrow signal changes along the superior and inferior endplates. Marrow edema extends into the left L4-L5 pedicles and the right L4 pedicle to a greater degree, suggesting stress reaction. Alignment: Thoracolumbar levoscoliosis with apex at L2-L3. Trace likely degenerative retrolisthesis at L1-L2, L2-L3, and L3-L4. Left lateral listhesis at L3-L4. Unremarkable visualized spinal cord. Conus medullaris terminates normally at the superior L2 endplate. Crowding of the nerve roots of the cauda equina related to the below, otherwise grossly unremarkable noncontrast appearance. L1-2: Loss of disc height with diffuse disc bulging, asymmetric to the right. Anterior disc/osteophyte complex. Trace facet arthropathy. Mild right foraminal stenosis. No significant left foraminal or spinal canal stenosis. L2-3: Loss of disc height with diffuse disc bulging, asymmetric to the right. Superimposed right foraminal, subarticular, and lateral disc protrusion with effacement of the right lateral recess. Moderate right and mild left foraminal stenosis. Mild facet arthropathy. Mild focal spinal canal stenosis. L3-4: Disc height loss with diffuse disc bulging. Facet arthropathy. Moderate to severe focal spinal canal stenosis with virtually complete effacement of CSF and spinal canal dimensions approximating 0.6 x 1.6 cm AP by transverse. Uhlk-ln-ulylcoip left and moderate right foraminal stenosis. L4-5: Mild loss of disc height with diffuse disc bulging, asymmetric to the left. Superimposed broad-based disc protrusion extending into the left subarticular, foraminal, and lateral region. Facet arthropathy. Ligamentum flavum hypertrophy. Severe spinal canal stenosis with complete effacement of CSF, spinal canal dimensions approximating 1.6 x 0.6 cm effacement of the left greater than right lateral recesses. Mild/moderate right and moderate to severe left foraminal stenosis. L5-S1: Near-complete loss of disc height with mild diffuse disc bulging and superimposed left subarticular and foraminal disc protrusion. Facet arthropathy. Redkinis-mg-ibxoqf bilateral foraminal stenosis. Mild focal spinal canal stenosis. Other: Vjif-escvtqk-jczi-right maxillary paranasal sinus disease suspected on the seater grinder. Cervical spondylosis on the scalp. Diverticulosis. MRI/Spine Lumbar (Routine) IMPRESSION: 1. Multilevel spondylosis as detailed above. Variable spinal canal stenoses up to severe at L4-L5. Multifocal foraminal stenoses up to moderate to severe bilaterally at L5-S1 and on the left at L4-L5 . 2. Likely degenerative marrow signal changes including edema extending into the left L4-L5 pedicles and right L4 pedicle, suggesting stress reaction. 3. Uare-lsqcaxd-oqel-right maxillary paranasal sinus disease and cervical spond ylosis on the seater grinder. 4. Additional description as above. Reading Location: [facility]
== END | disposition home or self-care (01) ==
LOC: MRI 07:21
PROVIDERS: PCP Physician Assistant; Visit Provider Physician Assistant
DX: G89.29 Other chronic pain (principal)
CPT/HCPCS: 72148

== ENCOUNTER → 2025-05-30 | Outpatient (CLI) | payer MEDICARE, MEDICAID, SELFPAY ==
--- NOTE | 2025-05-30 14:53 | MRI_ITS ---
PROCEDURE: SPINE CERVICAL (ROUTINE) 05/30/2025 REASON FOR EXAM: LEFT CERVICAL RADICULOPATHY TECHNIQUE: Procedure Code: MRISPC Modality: MR Procedure: SPINE CERVICAL (ROUTINE) Multiplanar and multisequence images were obtained without IV contrast administration. COMPARISON: None. FINDINGS: Vertebrae: Cervical vertebral body heights are preserved. Bone marrow signal is unremarkable. Alignment: Normal. No spondylolisthesis. Spinal Cord: Cervical spinal cord is of normal size and signal intensities. Structures at the foramen magnum are unremarkable. C2-3: Facet arthropathy. No significant foraminal or canal stenosis. C3-4: Facet arthropathy. No foraminal or canal stenosis. C4-5: Disc desiccation. Facet arthropathy. Mild bilateral foramina stenosis. Mild canal stenosis. C5-6: Disc desiccation. Facet joints arthropathy. No significant foramina stenosis. Mild canal stenosis. C6-7: Disc desiccation. Uncovertebral hypertrophy. Severe left and mild right foramina stenosis. Moderate canal stenosis. C7-T1: No significant foraminal or canal stenosis. MRI/Spine Cervical (Routine) IMPRESSION: Multilevel degenerate changes predominantly for moderate canal stenosis and sev ere left foramina stenosis at C6-C7. Reading Location: [id number]
--- NOTE | 2025-05-30 14:54 | MRI_ITS ---
PROCEDURE: SPINE THORACIC (ROUTINE) 05/30/2025 REASON FOR EXAM: RADICULOPATHY TECHNIQUE: Procedure Code: MRISPT Modality: MR Procedure: SPINE THORACIC (ROUTINE) Multiplanar and multisequence images were obtained. CONTRAST: VOLUME: mL FINDINGS: No acute fracture or subluxation. No significant disc narrowing. A small benign intraosseous hemangioma is noted within the T8 vertebral body. The remainder of the bone marrow signal is unremarkable. The thoracic cord is normal in size and signal. The thoracic canal appears ample. Left facet arthrosis at T10-11, T11-12, and T12- L1 result in moderate left neural foraminal narrowing at these levels. The remainder of the thoracic neural foramina appear ample. The paraspinal soft tissues appear unremarkable. MRI/Spine Thoracic (Routine) IMPRESSION: Lower thoracic spondylosis resulting in jvyi-lo-aivgrbit left neural foraminal narrowing at T10-11, T11-12, and T12-L1. Reading Location: [id number]
== END | disposition home or self-care (01) ==
LOC: MRI 14:50
PROVIDERS: PCP Physician Assistant; Referring Provider Physician Assistant; Visit Provider Physician Assistant
DX: M54.12 Radiculopathy, cervical region (principal)
CPT/HCPCS: 72141; 72146